=== PATIENT | female | born 1970 | race Caucasian/White ===

== ENCOUNTER 2016-03-24 12:35 | Emergency (ER) | payer SELFPAY ==
[~2016-03-24] VITALS: Ht 165.1 cm; Wt 90.0 kg
[~2016-03-24 12:35] MED LIST: ALPR-138 PO; AMLO5TAB96 PO; LISI10TA PO; SULF-154 PO
[2016-03-24 12:48] VITALS: PULSE 115; RESP 18; TEMP 99.6; O2SAT 98
[2016-03-24] MEDS ORDERED: SODIUM CHLOR 0.9% 1000 ML INJ 1,000 ML IV ONE (13:30)
[2016-03-24] MEDS ORDERED: LORazepam 0.5 MG TAB PO ONE (13:30)
[2016-03-24 13:55] LABS: AUTOMATED NEUTROPHIL # 9.8 TH/MM3 (1.8-7.7); BASOPHIL # 0.1 TH/MM3 (0-0.2); BASOPHIL % 0.8 % (0.0-2.0); EOSINOPHIL % 0.3 % (0.0-4.0); HEMATOCRIT 40.5 % (35.0-46.0); LYMPH % 16.9 % (9.0-44.0); LYMPHOCYTE # 2.1 TH/MM3 (1.0-4.8); MEAN CELL VOLUME 82.5 FL (80.0-100.0); MEAN CORPUSCULAR HEMOGLOBIN 27.9 PG (27.0-34.0); MEAN CORPUSCULAR HGB CONC 33.9 % (32.0-36.0); MONO % 4.3 % (0.0-8.0); NEUT % 77.7 % (16.0-70.0); PLATELET COUNT 372 TH/MM3 (150-450); RED BLOOD COUNT 4.91 MIL/MM3 (4.00-5.30); RED CELL DISTRIBUTION WIDTH 14.1 % (11.6-17.2); WHITE BLOOD COUNT 12.5 TH/MM3 (4.0-11.0)
[2016-03-24 14:00] LABS: HEMO FLAGS DIFF FINAL
[2016-03-24 14:06] LABS: CHLORIDE 103 MEQ/L (98-107); POTASSIUM 3.6 MEQ/L (3.5-5.1); SODIUM (NA) 141 MEQ/L (136-145)
--- NOTE | 2016-03-24 14:08 | RADHPO ---
EXAM DATE/TIME: 03/24/2016 13:50 [facility] COMPARISON: No previous studies available for comparison. INDICATIONS : Chest palpatations. MEDICAL HISTORY : None. SURGICAL HISTORY : None. ENCOUNTER: Initial ACUITY: 2 days PAIN SCORE: 7/10 LOCATION: Bilateral chest FINDINGS: PA and lateral views of the chest demonstrate the lungs to be symmetrically aerated without evidence of mass, infiltrate or effusion. The cardiomediastinal contours are unremarkable. Osseous structure s are intact. CONCLUSION: No acute disease. Bryan Friend MD FACR on March 24, 2016 at 14:07 Board Certified Radiologist. This report was verified electronically.
[2016-03-24 14:11] LABS: ANION GAP 9 MEQ/L (5-15); BICARBONATE 29.5 MEQ/L (21.0-32.0); BLOOD UREA NITROGEN 13 MG/DL (7-18)
[2016-03-24 14:14] LABS: ALT (GPT) 31 U/L (10-53); AST (GOT) 22 U/L (15-37); GLOMERULAR FILTRATION RATE 98 ML/MIN (>89)
[2016-03-24 14:16] LABS: TOTAL BILIRUBIN ADULT 0.2 MG/DL (0.2-1.0)
[2016-03-24 14:17] LABS: ALKALINE PHOSPHATASE 104 U/L (45-117)
[2016-03-24 15:10] VITALS: BP 148/72; PULSE 88; RESP 17; O2SAT 100
--- NOTE | 2016-03-24 16:37 | RADHPO ---
EXAM DATE/TIME: 03/24/2016 16:06 [facility] COMPARISON: No previous studies available for comparison. INDICATIONS : Cephalgia. RADIATION DOSE: 57.70 CTDIvol (mGy) MEDICAL HISTORY : Cardiovascular disease. Hypertension. Aneurysm SURGICAL HISTORY : None. ENCOUNTER: Initial ACUITY: 1 day PAIN SCALE: 3/10 LOCATION: cranial TECHNIQUE: Multiple contiguous axial images were obtained of the head. Using automated exposure control and adj ustment of the mA and/or kV according to patient size, radiation dose was kept as low as reasonably a chievable to obtain optimal diagnostic quality images. FINDINGS: CEREBRUM: The ventricles are normal for age. No evidence of midline shift, mass lesion, hemorrhage or acute in farction. No extra-axial fluid collections are seen. POSTERIOR FOSSA: The cerebellum and brainstem are intact. The 4th ventricle is midline. The cerebellopontine angle i s unremarkable. EXTRACRANIAL: The visualized portion of the orbits is intact. SKULL: The calvaria is intact. No evidence of skull fracture. CONCLUSION: Normal examination for a patient of this age. Familia Kearney MD on March 24, 2016 at 16:35 Board Certified Radiologist. This report was verified electronically.
[2016-03-24] MEDS ORDERED: IOHEXOL 350 MG/ML 10 ML VIAL (for RAD DIAG) IV ONE (16:43)
--- NOTE | 2016-03-24 16:45 | RADHPO ---
EXAM DATE/TIME: 03/24/2016 16:06 [facility] COMPARISON: CT BRAIN W/O CONTRAST, March 24, 2016, 16:06. INDICATIONS : Cephalguia, aneurysm. IV CONTRAST: 100 cc Omnipaque 350 (iohexol) IV ; Cumulative dose for multiple exams. RADIATION DOSE: 42.91 CTDIvol (mGy) MEDICAL HISTORY : Cerebrovascular disease. Hypertension. aneursym. SURGICAL HISTORY : None. ENCOUNTER: Initial ACUITY: 1 day PAIN SCALE: 3/10 LOCATION: cranial TECHNIQUE: Volumetric scanning was performed using a multi-row detector CT scanner. The data was post processed with a variety of visualization algorithms including full volume maximum intensity projection, multi -planar sliding thin slab reformation, curved planar reformation, and surface rendering techniques. Using automated exposure control and adjustment of the mA and/or kV according to patient size, radiat ion dose was kept as low as reasonably achievable to obtain optimal diagnostic quality images. FINDINGS: Examination is limited by bolus. I do not see evidence for intracranial aneurysm or stenosis. If th ere is strong clinical suspicion for ruptured aneurysm lumbar puncture may be of benefit. CONCLUSION: Limited exam, negative for aneurysm. Bryan Friend MD FACR on March 24, 2016 at 16:41 Board Certified Radiologist. This report was verified electronically.
--- NOTE | 2016-03-24 16:57 | PD ---
HPI Chief Complaint: Anxiety Time Seen by Provider: 13:09 Travel History International Travel<30 days: No Contact w/Intl Traveler<30days: No Traveled to known affect area: No History of Present Illness HPI Patient is a 45-year-old female who comes in complaining of palpitations, numbness of her hands, anxiousness. She says she has had issues with anxiety and panic attacks her most of her life. She has not taken medications for the past 4 years and been okay. She says for the past few days she has been feeling increasingly anxious with palpitations. She says it got worse today so she came in. She reports a history of brain aneurysm and tumor, which she says she has not followed up within the past 4 years due to insurance issues. She denies any headache, blurred vision, nausea, vomiting. She denies any dizziness. PFSH Past Medical History Anxiety: Yes Cancer: Yes Cardiovascular Problems: Yes (HTN; MURMUR; BLOCKED LEFT CAROTID) Cerebrovascular Accident: Yes (2005) Diminished Hearing: No Hypertension: Yes Neurologic: Yes (BRAIN TUMOR, AND ANEURYSM ) Tetanus Vaccination: > 5 Years Influenza Vaccination: Yes ?: Not LMP: 03/18/16 : 4 Para: 3 Miscarriage: 2 Ovarian Cysts: Yes Past Surgical History Abdominal Surgery: Yes Gynecologic Surgery: Yes Social History Alcohol Use: No Tobacco Use: Yes (05/10 PPD ) Substance Use: No Allergies-Medications (Allergen,Severity, Reaction): Coded Allergies: Codeine (Verified Allergy, Severe, Itching, 03/24/16) Prednisone (Verified Allergy, Severe, Rash, 03/24/16) Reported Meds & Prescriptions Reported Meds & Active Scripts Active No Active Prescriptions or Reported Medications Review of Systems Except as stated in HPI: all other systems reviewed are Neg General / Constitutional: No: Fever, Chills Eyes: No: Blurred Vision HENT: No: Headaches, Lightheadedness Cardiovascular: Positive: Palpitations, No: Chest Pain or Discomfort Respiratory: Positive: Shortness of Breath Gastrointestinal: No: Nausea, Vomiting Genitourinary: No: Dysuria Musculoskeletal: No: Myalgias, Edema Skin: No Rash, No Change in Pigmentation Neurologic: No: Weakness, Dizziness Physical Exam Narrative GENERAL: Awake and alert in no acute distress. SKIN: Warm and dry. HEAD: Atraumatic. Normocephalic. EYES: Pupils equal and round. No scleral icterus. Extraocular movements intact. ENT: Mucous membranes pink and moist. NECK: Trachea midline. No JVD. CARDIOVASCULAR: Tachycardia. No murmur appreciated. RESPIRATORY: No accessory muscle use. Clear to auscultation. Breath sounds equal bilaterally. GASTROINTESTINAL: Abdomen soft, non-tender, nondistended. MUSCULOSKELETAL: No obvious deformities. No clubbing. No cyanosis. No edema. NEUROLOGICAL: Awake and alert. No obvious cranial nerve deficits. Motor grossly within normal limits. Normal speech. PSYCHIATRIC: Appropriate mood and affect; insight and judgment normal. Data Data Last Documented VS Vital Signs Date Time Temp Pulse Resp B/P Pulse Ox O2 Delivery O2 Flow Rate FiO2 03/24/16 15:10 88 17 148/72 100 Room Air 03/24/16 12:48 99.6 Orders Electrocardiogram (03/24/16 ) Complete Blood Count With Diff (03/24/16 13:29) Comprehensive Metabolic Panel (03/24/16 13:29) Troponin I (03/24/16 13:29) D-Dimer (03/24/16 13:29) Chest, Pa & Lat (03/24/16 ) Ed Urine Pregnancytest Poc (03/24/16 13:29) Lorazepam (Ativan) (03/24/16 13:30) Sodium Chlor 0.9% 1000 Ml Inj (Ns 1000 M (03/24/16 13:30) Cta Brain W Iv Contrast W 3d (03/24/16 ) Ct Brain W/O Iv Contrast(Rout) (03/24/16 ) Iohexol 350 Inj (Omnipaque 350 Inj) (03/24/16 16:43) Labs Laboratory Tests Test 03/24/16 13:45 White Blood Count 12.5 TH/MM3 Red Blood Count 4.91 MIL/MM3 Hemoglobin 13.7 GM/DL Hematocrit 40.5 % Mean Corpuscular Volume 82.5 FL Mean Corpuscular Hemoglobin 27.9 PG Mean Corpuscular Hemoglobin 33.9 % Concent Red Cell Distribution Width 14.1 % Platelet Count 372 TH/MM3 Mean Platelet Volume 9.1 FL Neutrophils (%) (Auto) 77.7 % Lymphocytes (%) (Auto) 16.9 % Monocytes (%) (Auto) 4.3 % Eosinophils (%) (Auto) 0.3 % Basophils (%) (Auto) 0.8 % Neutrophils # (Auto) 9.8 TH/MM3 Lymphocytes # (Auto) 2.1 TH/MM3 Monocytes # (Auto) 0.5 TH/MM3 Eosinophils # (Auto) 0.0 TH/MM3 Basophils # (Auto) 0.1 TH/MM3 CBC Comment DIFF FINAL Differential Comment D-Dimer Quantitative (PE/DVT) 0.38 MG/L FEU Sodium Level 141 MEQ/L Potassium Level 3.6 MEQ/L Chloride Level 103 MEQ/L Carbon Dioxide Level 29.5 MEQ/L Anion Gap 9 MEQ/L Blood Urea Nitrogen 13 MG/DL Creatinine 0.66 MG/DL Estimat Glomerular Filtration 98 ML/MIN Rate Random Glucose 92 MG/DL Calcium Level 9.4 MG/DL Total Bilirubin 0.2 MG/DL Aspartate Amino Transf 22 U/L (AST/SGOT) Alanine Aminotransferase 31 U/L (ALT/SGPT) Alkaline Phosphatase 104 U/L Troponin I LESS THAN 0.02 NG/ML Total Protein 8.1 GM/DL Albumin 3.9 GM/DL MDM Medical Decision Making Medical Screen Exam Complete: Yes Emergency Medical Condition: Yes Interpretation(s) ECG shows sinus tachycardia at 117. No ST elevation or depression. Differential Diagnosis Anxiety versus panic attack versus electrolyte abnormality versus dehydration versus ACS Narrative Course Patient is a 45-year-old female who comes in complaining of palpitations and numbness and tingling of her hands. Exam shows no neurologic abnormalities. Patient is tachycardic. IV established, labs sent. Labs including d-dimer and troponin are negative. Patient given Ativan with improvement of her symptoms. Pulse rate returned to normal, 88. Patient is very concerned about her aneurysm /tumor. CTA of the head ordered shows no acute abnormalities. Patient advised she should follow up to have an MRI. As she is not having symptoms concerning for ruptured aneurysm or increased pressure in her skull, I did not believe she needs to have this test done in the emergency department. Mandatory referral placed to neurology. Patient advised follow-up with a primary care physician. Advised to return to the ED as needed for any worsening symptoms. Patient is comfortable with discharge at this time. Diagnosis Primary Impression: Palpitations Referrals: Hunter Elder PhD MD call for appointment Patient Instructions: Anxiety (ED), General Instructions, Palpitations (ED) Additional Instructions: Follow up with a primary doctor. Follow up with neurology. Return to the ED as needed for any worsening symptoms. Scripts No Active Prescriptions or Reported Meds Disposition: 01 DISCHARGE HOME Condition: Stable Yary Amaya MD Mar 24, 2016 16:57
[2016-03-24 16:59] VITALS: BP 156/93; PULSE 82; RESP 17; O2SAT 96
--- NOTE | 2016-03-25 10:33 | EKG ---
Date Performed: 03/24/2016 Time Performed: 13:12:18 PTAGE: 45 years EKG: Sinus tachycardia Leftward axis Incomplete RBBB Septal ST changes are nonspecific Borderlin e ECG NO PREVIOUS TRACING DOCTOR: Sekou Lee Interpretating Date/Time 03/25/2016 10:32:24
== END 2016-03-24 17:13 | disposition home or self-care (01) ==
LOC: PHED 12:35
DX: R00.2 Palpitations (principal); F41.0 Panic disorder [episodic paroxysmal anxiety]; F41.9 Anxiety disorder, unspecified; I10 Essential (primary) hypertension; F17.210 Nicotine dependence, cigarettes, uncomplicated; R94.31 Abnormal electrocardiogram [ECG] [EKG]
CPT/HCPCS: 70450; 70496; 71020; 80053; 84484; 84703; 85025; 85379; 93005; 96360; 99285; J7030; Q9967

== ENCOUNTER 2016-07-28 18:30 | Emergency (ER) | payer SELFPAY ==
[~2016-07-28] VITALS: Ht 165.1 cm; Wt 80.0 kg
[2016-07-28 18:33] VITALS: BP 143/74; PULSE 84; RESP 18; TEMP 98.3; O2SAT 98
--- NOTE | 2016-07-28 19:04 | PD ---
HPI Chief Complaint: Pain: Acute or Chronic Time Seen by Provider: 19:03 Travel History International Travel<30 days: No Contact w/Intl Traveler<30days: No Traveled to known affect area: No History of Present Illness HPI 45-year-old female presents to the emergency department for evaluation of right foot and ankle pain. Patient states that she's had worsening pain in her right ankle over the last 6 months. States that she's had some swelling intermittently as well that has worsened over the past 2 weeks. She denies any specific injury or trauma to her foot or ankle. States that she noticed a lump develop to her right posterior ankle overlying her Achilles over the last 6 months. States his been getting larger and more painful. Pain is aggravated with walking, movement and palpation. She has been taking ibuprofen with minimal improvement of symptoms. She denies any numbness or tingling, weakness , fever, chills, nausea, vomiting. Denies , last menstrual period 2 weeks ago. States that she has not had a PCP in the last 6-7 months since she lost her health insurance. No other complaints. [facility] Past Medical History Anxiety: Yes Cancer: Yes Cardiovascular Problems: Yes (HTN; MURMUR; BLOCKED LEFT CAROTID) Cerebrovascular Accident: Yes (2005) Diminished Hearing: No Hypertension: Yes Neurologic: Yes (BRAIN TUMOR, AND ANEURYSM ) Tetanus Vaccination: > 5 Years Influenza Vaccination: Yes ?: Not LMP: 07/22/16 : 4 Para: 3 Miscarriage: 2 Ovarian Cysts: Yes Past Surgical History Abdominal Surgery: Yes Gynecologic Surgery: Yes Social History Alcohol Use: No Tobacco Use: Yes (05/10 PPD ) Substance Use: No Allergies-Medications (Allergen,Severity, Reaction): Coded Allergies: Codeine (Verified Allergy, Severe, Itching, 07/28/16) Prednisone (Verified Allergy, Severe, Rash, 07/28/16) Reported Meds & Prescriptions Reported Meds & Active Scripts Active No Active Prescriptions or Reported Medications Review of Systems Except as stated in HPI: all other systems reviewed are Neg Physical Exam Narrative GENERAL: Well-nourished and well-developed pleasant female patient in no acute distress who is nontoxic appearing. SKIN: Warm and dry. HEAD: Normocephalic and atraumatic. EYES: No injection, drainage, or hyphema noted. PERRLA. EOMI. ENT: No nasal drainage noted. Oropharynx is clear. NECK: Supple and the trachea is midline. CARDIOVASCULAR: Regular rate and rhythm. RESPIRATORY: Breath sounds are equal bilaterally with no accessory muscle use, wheezing, rhonchi, or crackles. EXTREMITY: The right foot has a walnut sized enlarged area overlying the inferior aspect of the Achilles that is tender to palpation. No erythema, warmth, fluctuance. Mild swelling noted to lateral foot. Full range of motion. DP pulses are 2+ bilaterally. Capillary refill is within normal limits. There is no ligamentous instability. There is no deformity. The foot and toes are warm and well-perfused. Sensation to pain and light touch is intact. NEUROLOGICAL: Awake, alert, and oriented. Normal speech and gait. Cranial nerves are grossly intact. Data Data Last Documented VS Vital Signs Date Time Temp Pulse Resp B/P Pulse Ox O2 Delivery O2 Flow Rate FiO2 07/28/16 18:48 17 07/28/16 18:33 98.3 84 143/74 98 Orders Foot, Complete ([id number]) (07/28/16 ) [facility] Medical Decision Making Medical Screen Exam Complete: Yes Emergency Medical Condition: Yes Differential Diagnosis Tendinopathy versus cyst versus arthrosis Narrative Course 45-year-old female presents to the emergency department for evaluation of right foot and ankle pain worsening over 6 months. Patient is afebrile, vital signs are stable. Patient has an enlarged tender area overlying her right Achilles tendon consistent with [place]'s deformity suggestive of Achilles tendinopathy. X-ray imaging has been ordered and is pending. X-ray of the right foot shows soft tissue swelling overlying the posterior calcaneus but is otherwise unremarkable for any acute abnormality. I discussed the findings with the patient. I discussed with the patient supportive care. She is instructed to follow-up with a casting assistant as an outpatient. She'll be prescribed a short course of Lortab and advised to continue NSAIDs. Patient verbalizes understanding and agreement with treatment plan. Diagnosis Primary Impression: Achilles tendonosis of right lower extremity Referrals: Wholesaler Patient Instructions: Achilles Tendinitis (ED), General Instructions Additional Instructions: You have an Achilles tendinopathy. This will require physical therapy, ice, NSAIDS. Apply ice for 20 minutes on, 20 minutes off. Take medication as prescribed with food and a full glass of water. Follow-up with a Wholesaler. Return to the ED for any acute worsening of symptoms. Med/Other Pt SpecificInfo: Prescription(s) given Scripts Hydrocodone-Acetaminophen (Lortab)5-325 Mg Tab1 Tab PO Q4H PRN (PAIN GREATER THAN 6) #15 TAB Ref 0 Prov:Mandi Godinez MD 07/28/16 Disposition: 01 DISCHARGE HOME Condition: Stable Ailyn Rizzo July 28, 2016 19:04
--- NOTE | 2016-07-28 20:37 | RADRPT ---
EXAM DATE/TIME: 07/28/2016 19:31 [facility] COMPARISON: No previous studies available for comparison. INDICATIONS : Right foot pain and swelling for the past four months. MEDICAL HISTORY : None. SURGICAL HISTORY : None. ENCOUNTER: Initial ACUITY: 4 - 6 months PAIN SCORE: 10/10 LOCATION: Right foot. FINDINGS: Three view examination of the right foot demonstrates no dislocation, or fracture. The tarsal bones appear intact. The interphalangeal and metatarsophalangeal joints are intact. The calcaneus is int act. Bony mineralization is normal. CONCLUSION: 1. No acute bony findings. Soft tissue swelling over the posterior calcaneus. Herve Torres MD on July 28, 2016 at 20:34 Board Certified Radiologist. This report was verified electronically.
[2016-07-28] MEDS ORDERED: HYDR-3533 PO (20:54)
== END 2016-07-28 21:22 | disposition home or self-care (01) ==
LOC: NEPD 18:30
DX: M76.61 Achilles tendinitis, right leg (principal); I10 Essential (primary) hypertension; R01.1 Cardiac murmur, unspecified; F17.210 Nicotine dependence, cigarettes, uncomplicated; Z86.73 Personal history of transient ischemic attack (TIA), and cerebral infarction without residual deficits
CPT/HCPCS: 73630; 99283